=== PATIENT | male | born 1975 | race Caucasian/White ===

== ENCOUNTER 2017-09-17 12:31 | Emergency (ER) | payer OTHER ==
[~2017-09-17] VITALS: Ht 185.4 cm; Wt 127.3 kg
[2017-09-17] MEDS ORDERED: LISI-661 PO (12:34)
[2017-09-17 12:38] VITALS: BP 161/104
== END 2017-09-17 17:16 | disposition left against medical advice (07) ==
LOC: EMS 12:32
DX: R06.00 Dyspnea, unspecified (principal); I10 Essential (primary) hypertension; Z53.21 Procedure and treatment not carried out due to patient leaving prior to being seen by health care provider
CPT/HCPCS: 71046; 99281